=== PATIENT | female | born 1995 ===

== ENCOUNTER 2020-11-23 08:59 | Inpatient (IN) ==
[2020-11-23] MEDS ORDERED: LACTATED RINGERS 1,000 ML IV PRN (09:26)
[2020-11-23] MEDS ORDERED: BUTORPHANOL 2 MG/ML VIAL IV PRN (09:26)
[2020-11-23] MEDS ORDERED: ONDANSETRON 4 MG/2 ML VIAL IV PRN ×2 (09:26→09:51)
[2020-11-23] MEDS ORDERED: AMPICILLIN 2,000 MG VIAL ONE (09:26)
[2020-11-23] MEDS ORDERED: MEPERIDINE 50 MG/1 ML VIAL IM PRN (09:26)
[2020-11-23] MEDS ORDERED: BUTORPHANOL 1 MG/ML VIAL IV PRN (09:26)
[2020-11-23] MEDS ORDERED: AMPICILLIN INJ 2,000 MG in SODIUM CHLORIDE 0.9% 100 ML IV ONE (09:30)
[2020-11-23] MEDS ORDERED: TRANEXAMIC ACID 1,000 MG/10 ML VIAL ONE (09:32)
[2020-11-23] MEDS ORDERED: miSOPROStoL 200 MCG TABLET ONE (09:32)
[2020-11-23] MEDS ORDERED: OXYTOCIN/LR 20 UNIT/1,000 ML BAG IV ONE ×3 (09:32→15:14)
[2020-11-23] MEDS ORDERED: METHYLERGONOVINE 0.2 MG/1 ML AMP ONE (09:32)
[2020-11-23] MEDS ORDERED: CARBOPROST TROMETHAMINE 250 MCG/ML AMP IM ONE (09:33)
[2020-11-23] MEDS ORDERED: LIDOCAINE 1% 50 ML VIAL ONE (09:34)
[2020-11-23] MEDS ORDERED: BENZOCAINE 20%/MENTHOL 0.5% SPRAY 56 GM CAN TOP PRN (09:51)
[2020-11-23] MEDS ORDERED: oxyCODONE/ACETAMINOPHEN 5-325 MG TABLET PO PRN ×2 (09:51)
[2020-11-23] MEDS ORDERED: HYDROCORTISONE 2.5% RECTAL CREAM 30 GM TUBE TOP PRN (09:51)
[2020-11-23] MEDS ORDERED: WITCH HAZEL PADS 100/JAR TOP PRN (09:51)
[2020-11-23] MEDS ORDERED: MEASLES/MUMPS/RUBELLA VACCINE 0.5 ML VIAL SUBCUT ONE (09:51)
[2020-11-23] MEDS ORDERED: RHO(D) IMMUNE GLOBULIN 300 MCG SYRINGE IM ONE (09:51)
[2020-11-23] MEDS ORDERED: ACETAMINOPHEN 325 MG TABLET PO PRN (09:51)
[2020-11-23] MEDS ORDERED: BISACODYL 10 MG SUPP RECTAL PRN (09:51)
[2020-11-23] MEDS ORDERED: LANOLIN 50% CREAM 0.3 OZ TUBE TOP PRN (09:51)
[2020-11-23] MEDS ORDERED: DIPH/TET/ACEL PERT BOOSTER VACCINE 0.5 ML VIAL IM ONE (09:51)
[2020-11-23 09:56] LABS: Barbiturates Screen,Urine Negative (Negative); Benzodiazepines Screen,Urine Negative (Negative); Cannabinoid Screen,Urine Negative (Negative); Opiate Screen,Urine Negative (Negative); Phencyclidine Screen,Urine Negative (Negative)
[2020-11-23 10:06] LABS: Cord Venous Blood PCO2 33.7 MMHG; Cord Venous Blood PO2 31.7 MMHG
[2020-11-23 10:15] LABS: Albumin 2.6 G/DL (3.4-5.0); Basophils # 0.1 10*3/uL (0.0-0.2); Basophils % 0.5 % (0.0-0.8); Bilirubin,Total 0.5 MG/DL (0.20-1.00); Calcium 8.4 MG/DL (8.5-10.1); Hematocrit 25.2 VOL% (35.7-47.0); Immature Granulocytes % 1.6 %; Immature Granulocytes Absolute 0.26 #; Lymphocytes # 3.2 10*3/uL (1.4-4.0); Lymphocytes % 19.7 % (21.3-54.2); Mean Corpuscular Volume 66.7 FL (87-102); Mean Platelet Volume 10.7 FL (9.6-12.0); Monocytes % 5.8 % (1.7-12.7); NRBC # 0.14 10*3/uL; Neutrophils % 72.4 % (38.7-73.9); Osmolality,Calculated 272.8 MOS/KG (273-304); Platelet Count 406 T/CUMM (130-400); Potassium 3.3 MMOL/L (3.5-5.1); Red Blood Count 3.78 MC/CUMM (3.8-5.5); Total Protein 6.6 G/DL (6.4-8.2); White Blood Count 16.3 T/CUMM (4-12)
[2020-11-23 10:18] LABS: Hemoglobin 6.8 GM/DL (12.0-16.0)
[2020-11-23 10:24] LABS: Hypochromasia 1+; Platelet Estimate Adequate
[2020-11-23 10:25] LABS: Microcytosis Slight
[2020-11-23 10:30] LABS: Bacteria,Urine Occasional /HPF (Few); Bilirubin,Urine Negative (Negative); Blood, Urine Moderate mg/dL (Negative); Glucose,Urine (UA) Negative (Negative); Ketones,Urine Negative (Negative); Mucus,Urine Occasional /LPF (Occasional); Nitrite,Urine Negative (Negative); Protein,Urine 100 MG/DL; RBC,Urine 194 /HPF (0-4); Squamous Epithelial Cell,Urine Many /HPF (0-10); Urine Appearance CLOUDY (Clear); Urine Color Yellow (Yellow); Urine Specific Gravity 1.005 (1.001-1.035); Urine Urobilinogen < 2.0 EU/DL (0.2-1.0)
[2020-11-23] MEDS: IBUPROFEN 800 MG TABLET PO PRN ×2 (11:29→20:10)
[2020-11-23] MEDS: IRON (CARBONYL)/VIT C/B12/FA TABLET PO SCH (15:00)
[2020-11-23] MEDS: DOCUSATE SODIUM 100 MG CAPSULE PO SCH (20:10)
[2020-11-24] MEDS: POTASSIUM CHLORIDE 20 MEQ TABLET PO PRN ×3 (00:08→04:37)
[2020-11-24 05:55] LABS: Basophils % 0.3 % (0.0-0.8); Eosinophils % 0.3 % (0.00-10.9); Hematocrit 19.6 VOL% (35.7-47.0); Immature Granulocytes Absolute 0.21 #; Lymphocytes % 29.6 % (21.3-54.2); Mean Corpuscular Volume 66.4 FL (87-102); Mean Platelet Volume 11.2 FL (9.6-12.0); Monocytes % 5.8 % (1.7-12.7); Red Blood Count 2.95 MC/CUMM (3.8-5.5); Red Cell Distribution Width 20.8 % (9.3-17.3); White Blood Count 10.3 T/CUMM (4-12)
[2020-11-24 06:09] LABS: Hemoglobin 5.3 GM/DL (12.0-16.0); Platelet Count 251 T/CUMM (130-400)
[2020-11-24 06:13] LABS: Hypochromasia 1+; Microcytosis 1+; Platelet Estimate Adequate
[2020-11-24] MEDS ORDERED: SODIUM CHLORIDE 0.9% 1,000 ML IV PRN (06:16)
[2020-11-24] MEDS: IRON (CARBONYL)/VIT C/B12/FA TABLET PO SCH (09:59)
[2020-11-24] MEDS: DOCUSATE SODIUM 100 MG CAPSULE PO SCH ×2 (09:59→19:42)
[2020-11-24] MEDS ORDERED: ALBUTEROL 1.25 MG/3 ML NEB RESP TX ONE (16:38)
[2020-11-24 18:04] LABS: Hematocrit 25.5 VOL% (35.7-47.0)
[2020-11-24 18:22] LABS: Hemoglobin 7.4 GM/DL (12.0-16.0)
[2020-11-24] MEDS: IBUPROFEN 800 MG TABLET PO PRN (19:43)
[2020-11-24] MEDS ORDERED: ALBUTEROL 1.25 MG/3 ML NEB RESP TX PRN (20:00)
[2020-11-25] MEDS: DOCUSATE SODIUM 100 MG CAPSULE PO SCH ×2 (01:30→08:48)
[2020-11-25] MEDS: IRON (CARBONYL)/VIT C/B12/FA TABLET PO SCH (08:49)
[2020-11-25 09:42] VITALS: BP 136/88
== END 2020-11-25 13:30 | disposition home or self-care (01) | DRG 806 ==
LOC: N.LD 08:59 → N.OB 14:01
PROVIDERS: ADMIT Obstetrics & Gynecology; ATTEND Obstetrics & Gynecology